=== PATIENT | male | born 1950 | race Hispanic/Latino ===

== ENCOUNTER → 2023-12-03 | Day surgery (SDC) | payer MEDICARE ==
[~2023-12-03] MED LIST: ACETAMINOPHEN 1000 MG/100 ML IV PRN; ASPIRIN 325 MG TAB PO SCH; ASPIRIN81 MG PO; CELEBREX100 MG PO; CELECOXIB 100 MG CAP PO SCH; CRESTOR40 MG PO; DEXAMETHASONE SOD PHOS INJ 4 MG/ML SDV ONE; DIPHENHYDRAMINE HCL INJ 50 MG/ML VIAL IV PRN; DOCUSATE SODIUM 100 MG CAP PO PRN; EPHEDRINE SULFATE INJ 50 MG/ML VIAL ONE; FENTANYL CITRATE/PF 100MCG/2 ML INJ ONE; GLUCOTROL XL10 MG PO; HYDROCODONE/APAP 5MG-325MG TAB PO PRN; HYDROCODONE/APAP 7.5MG-325MG 1 EA TAB PO PRN; LABETALOL HCL 5 MG/ML 20ML VIAL ONE; LASIX20 MG PO; LIDOCAINE HCL 2% LOCAL INJ 5 ML SDV VIAL INJ ONE; LOSARTAN POTASS25 MG PO; METFORMIN HCL500 M2 PO; METOPROLOL SUCC25 MG PO; MIDAZOLAM HCL 2 MG/2 ML VIAL ONE; ONDANSETRON HCL INJ 2MG/ML 2ML 2 MG/ML VIAL IV PRN; PLAVIX75 MG PO; PROPOFOL IV EMULSION 10 MG/ML 20 ML VIAL ONE; ROPIVACAINE 246.25 MG, EPINEPHRINE HCL 1:1000 1ML 0.5 MG, CLONIDINE HCL 0.08 MG, KETORO... INJ ONE; SEVOFLURANE INHAL SOLN 250 ML PEN BTL ONE; SODIUM CHLORIDE 0.9% 1000ML 1,000 ML IV SCH; SODIUM CHLORIDE 0.9% 500ML 500 ML ONE; SPIRONOLACTONE25 MG PO; TRANEXAMIC ACID 20 ML ONE; TRULICITY3 MG/0.5 M SC; Vancomycin IV 500 MG ONE; Z ULORIC PO; Z.0.ASPIR 8181 MG PO; Z.0.BENICAR40 MG PO; Z.0.CARVEDILOL12.5 M PO; Z.0.FUROSEMIDE40 MG PO; Z.0.GLIPIZIDE5 MG PO; Z.0.NITROGLYCERIN0.4 SL; Z.0.SPIRONOLACTONE25 PO
[2023-12-03] MEDS: DEXAMETHASONE SOD PHOS 10 MG/1 ML VIAL ONE (08:05)
[2023-12-03] MEDS: CELECOXIB 200 MG CAP ONE (08:05)
[2023-12-03] MEDS: GABAPENTIN 300 MG CAP ONE (08:06)
[2023-12-03] MEDS: LACTATED RINGER'S 1,000 ML ONE (08:06)
[2023-12-03] MEDS: CEFAZOLIN SODIUM 2 GM ONE (08:06)
[2023-12-03 12:21] VITALS: TEMP 97
[2023-12-03 17:00] VITALS: BP 147/70; PULSE 78; RESP 18; O2SAT 98
== END | disposition home health service (06) ==
LOC: OR 07:18
PROVIDERS: ATTEND Specialist
DX: M17.12 Unilateral primary osteoarthritis, left knee (principal); M11.262 Other chondrocalcinosis, left knee; I10 Essential (primary) hypertension; E78.5 Hyperlipidemia, unspecified; I25.10 Atherosclerotic heart disease of native coronary artery without angina pectoris; I25.2 Old myocardial infarction; Z95.0 Presence of cardiac pacemaker; E11.9 Type 2 diabetes mellitus without complications; Z01.810 Encounter for preprocedural cardiovascular examination; Z01.812 Encounter for preprocedural laboratory examination; Z01.818 Encounter for other preprocedural examination; Z79.02 Long term (current) use of antithrombotics/antiplatelets; Z79.82 Long term (current) use of aspirin; Z79.84 Long term (current) use of oral hypoglycemic drugs; Z79.85 Long-term (current) use of injectable non-insulin antidiabetic drugs; Z79.899 Other long term (current) drug therapy; Z86.73 Personal history of transient ischemic attack (TIA), and cerebral infarction without residual deficits
CPT/HCPCS: 27447; 71046; 73560; 86850; 86900; 93005; 97110; 97116 ×2; 97161; 97530; C1713 ×2; C1776 ×3; J0171; J1100 ×2; J1885; J2003; J2250; J2704; J2795; J3010; J3370; J3490; J7040; J7121

== ENCOUNTER 2024-11-03 11:56 | Inpatient (IN) | payer MEDICARE ==
[~2024-11-03] VITALS: Ht 198.1 cm; Wt 68.0 kg
[2024-11-03] VITALS (24 sets, daily range): BP systolic 71–135; BP diastolic 55–99; PULSE 59–148; RESP 14–35; TEMP 96–97.9; O2SAT 96–100
[~2024-11-03 11:56] MED LIST changes: -ACETAMINOPHEN 1000 MG/100 ML IV PRN; -ASPIRIN 325 MG TAB PO SCH; -CELECOXIB 100 MG CAP PO SCH; -DEXAMETHASONE SOD PHOS INJ 4 MG/ML SDV ONE; -DIPHENHYDRAMINE HCL INJ 50 MG/ML VIAL IV PRN; -DOCUSATE SODIUM 100 MG CAP PO PRN; -EPHEDRINE SULFATE INJ 50 MG/ML VIAL ONE; -FENTANYL CITRATE/PF 100MCG/2 ML INJ ONE; -HYDROCODONE/APAP 5MG-325MG TAB PO PRN; -HYDROCODONE/APAP 7.5MG-325MG 1 EA TAB PO PRN; -LABETALOL HCL 5 MG/ML 20ML VIAL ONE; -LIDOCAINE HCL 2% LOCAL INJ 5 ML SDV VIAL INJ ONE; -MIDAZOLAM HCL 2 MG/2 ML VIAL ONE; -ONDANSETRON HCL INJ 2MG/ML 2ML 2 MG/ML VIAL IV PRN; -PROPOFOL IV EMULSION 10 MG/ML 20 ML VIAL ONE; -ROPIVACAINE 246.25 MG, EPINEPHRINE HCL 1:1000 1ML 0.5 MG, CLONIDINE HCL 0.08 MG, KETORO... INJ ONE; -SEVOFLURANE INHAL SOLN 250 ML PEN BTL ONE; -SODIUM CHLORIDE 0.9% 1000ML 1,000 ML IV SCH; -SODIUM CHLORIDE 0.9% 500ML 500 ML ONE; -TRANEXAMIC ACID 20 ML ONE; -Vancomycin IV 500 MG ONE
[2024-11-03 13:14] LABS: BASOPHILS % 0.5 % (0.0-1.0); EOSINOPHILS % 1.5 % (0.0-6.0); LYMPHOCYTES % 29.3 % (18.0-39.1); MONOCYTES % 6.0 % (4.4-11.3); NEUTROPHILS % 62.5 % (38.7-80.0); RED CELL DISTRIBUTION WIDTH 15.5 % (11.7-14.4)
[2024-11-03] MEDS: METOPROLOL TARTRATE 50 MG TAB PO ONE (13:20)
[2024-11-03] MEDS: DILTIAZEM HCL 5 MG/ML 5 ML VIAL IV ONE (13:21)
[2024-11-03 13:25] LABS: EST GLOMERULAR FILTRATION RATE 32.0 ML/MIN (>=60)
[2024-11-03] MEDS ORDERED: SODIUM CHLORIDE 0.9% 1000ML 1,000 ML ONE (13:29)
[2024-11-03] MEDS: SODIUM CHLORIDE 0.9% 1000ML 1,000 ML IV ONE (13:52)
[2024-11-03] MEDS: ASPIRIN 81 MG CHEW TAB PO ONE (13:57)
[2024-11-03] MEDS ORDERED: CLOPIDOGREL BISULFATE 75 MG TAB ONE (13:58)
[2024-11-03] MEDS ORDERED: DEXTROSE 50% SYRINGE 50 ML IV PRN ×2 (14:15→16:45)
[2024-11-03] MEDS: AMIODARONE 900MG 500 ML IV SCH (14:20)
[2024-11-03] MEDS: CLOPIDOGREL BISULFATE 75 MG TAB PO ONE (15:11)
[2024-11-03] MEDS: VASOPRESSIN 60 UNIT in DEXTROSE 5% 50ML 57 ML IV SCH (15:34)
[2024-11-03] MEDS: DIGOXIN INJ 0.25 MG/ML 2 ML AMP IV ONE (16:22)
[2024-11-03] MEDS: INSULIN REGULAR, HUMAN 100 UNIT/1 ML SQ SCH (16:30)
[2024-11-03] MEDS ORDERED: ONDANSETRON HCL INJ 2MG/ML 2ML 2 MG/ML VIAL IV PRN (16:45)
[2024-11-03] MEDS ORDERED: POTASSIUM CHLORIDE 20 MEQ TAB CR PO PRN (16:45)
[2024-11-03] MEDS ORDERED: HYDRALAZINE HCL 20 MG/ML VIAL IV PRN (16:45)
[2024-11-03] MEDS ORDERED: ALBUTEROL/IPRATROPIUM 3 ML NEB NEB PRN (16:45)
[2024-11-03] MEDS ORDERED: DOCUSATE SODIUM 100 MG CAP PO PRN (16:45)
[2024-11-03] MEDS ORDERED: BENZONATATE 100 MG CAP PO PRN (16:45)
[2024-11-03] MEDS ORDERED: DIPHENHYDRAMINE HCL 25 MG CAP PO PRN (16:45)
[2024-11-03] MEDS ORDERED: SIMETHICONE 80 MG CHEW PO PRN (16:45)
[2024-11-03] MEDS ORDERED: APIXABAN 5 MG TABLET PO SCH (17:00)
[2024-11-03] MEDS ORDERED: HEPARIN SOD (PORCINE) 1000 UNIT/ML SDV IV SCH (17:30)
[2024-11-03] MEDS: HEPARIN 25,000 UNIT/D5W 250ML 250 ML IV SCH (17:30)
[2024-11-03] MEDS: FUROSEMIDE INJ 10 MG/ML 4 ML VIAL IV ONE (18:26)
[2024-11-03] MEDS: HEPARIN SOD (PORCINE) 1000 UNIT/ML SDV IV ONE (18:33)
[2024-11-03] MEDS: FUROSEMIDE INJ 100 MG in SODIUM CHLORIDE 0.9% 90 ML IV SCH (18:35)
[2024-11-03] MEDS: ATORVASTATIN 40 MG TAB PO SCH (20:40)
[2024-11-03] MEDS ORDERED: MELATONIN 5 MG TABLET PO PRN (21:00)
[2024-11-04] VITALS (53 sets, daily range): BP systolic 89–169; BP diastolic 52–126; PULSE 63–108; RESP 15–30; TEMP 97.6–98; O2SAT 97–100
[2024-11-04 05:32] LABS: BASOPHILS % 0.5 % (0.0-1.0); EOSINOPHILS % 0.1 % (0.0-6.0); LYMPHOCYTES % 23.4 % (18.0-39.1); MONOCYTES % 9.0 % (4.4-11.3); NEUTROPHILS % 66.5 % (38.7-80.0); RED CELL DISTRIBUTION WIDTH 15.1 % (11.7-14.4)
[2024-11-04 06:08] LABS: EST GLOMERULAR FILTRATION RATE 32.0 ML/MIN (>=60)
[2024-11-04 06:26] LABS: CHOL/HDL RATIO 2.6 (3.9-4.7); LDL CHOLESTEROL 31.0 MG/DL (60-130); PHOSPHORUS 5.4 MG/DL (2.3-4.7)
[2024-11-04] MEDS: ASPIRIN 81 MG ENTERIC COATED PO SCH (08:03)
[2024-11-04] MEDS: PANTOPRAZOLE SOD 40 MG TABEC PO SCH (08:03)
[2024-11-04] MEDS: MAGNESIUM SULFATE 2GM/50ML 50 ML IV ONE (12:07)
[2024-11-04] MEDS ORDERED: AMIODARONE 900MG 900 MG in Premix Bag 1 BAG IV SCH (13:00)
[2024-11-04] MEDS ORDERED: AMIODARONE 900MG 500 ML IV SCH (13:15)
[2024-11-04] MEDS: AMIODARONE 900MG 500 ML IV SCH (13:30)
[2024-11-04] MEDS: METOPROLOL TARTRATE 25 MG TAB PO SCH (17:57)
[2024-11-05] VITALS (41 sets, daily range): BP systolic 92–130; BP diastolic 53–111; PULSE 63–84; RESP 11–33; TEMP 97.7–98.2; O2SAT 93–100
[2024-11-05] MEDS: ACETAMINOPHEN 325 MG TAB PO PRN (04:04)
[2024-11-05 04:58] LABS: LEUKOCYTE ESTERASE ,URINE NEGATIVE (NEGATIVE); PROTEIN,URINE DIPSTICK NEGATIVE (NEGATIVE); URINE UROBILINOGEN 0.2 mg/dL (0.2 - 1)
[2024-11-05 05:09] LABS: EPITHELIAL CELLS,URINE FEW /LPF; WBC,URINE (MAN) 0-5 /HPF (0-5)
[2024-11-05 07:21] LABS: BASOPHILS % 0.2 % (0.0-1.0); EOSINOPHILS % 0.1 % (0.0-6.0); LYMPHOCYTES % 15.0 % (18.0-39.1); MONOCYTES % 7.3 % (4.4-11.3); NEUTROPHILS % 77.2 % (38.7-80.0); RED CELL DISTRIBUTION WIDTH 15.1 % (11.7-14.4)
[2024-11-05 07:46] LABS: EST GLOMERULAR FILTRATION RATE 38.0 ML/MIN (>=60)
[2024-11-05] MEDS: AMIODARONE HCL 200 MG TAB PO SCH (09:22)
[2024-11-05] MEDS: FUROSEMIDE INJ 10 MG/ML 10 ML VIAL IV SCH ×2 (09:23→17:12)
[2024-11-05] MEDS ORDERED: KETOROLAC TROMETHAMINE 30 MG/ML VIAL IV ONE (23:15)
[2024-11-05] MEDS: KETOROLAC TROMETHAMINE 30 MG/ML VIAL IV ONE (23:28)
[2024-11-06] VITALS (26 sets, daily range): BP systolic 94–118; BP diastolic 55–96; PULSE 68–80; RESP 12–21; TEMP 97.9–98.2; O2SAT 95–100
[2024-11-06 06:00] LABS: BASOPHILS % 0.4 % (0.0-1.0); EOSINOPHILS % 0.6 % (0.0-6.0); LYMPHOCYTES % 21.9 % (18.0-39.1); MONOCYTES % 9.8 % (4.4-11.3); NEUTROPHILS % 66.8 % (38.7-80.0); RED CELL DISTRIBUTION WIDTH 14.9 % (11.7-14.4)
[2024-11-06 06:22] LABS: EST GLOMERULAR FILTRATION RATE 33.0 ML/MIN (>=60)
[2024-11-06] MEDS: HYDROCODONE/APAP 5MG-325MG TAB PO PRN (15:42)
[2024-11-07] VITALS (26 sets, daily range): BP systolic 85–139; BP diastolic 57–84; PULSE 34–81; RESP 10–25; TEMP 97.6–98.2; O2SAT 95–100
[2024-11-07 05:28] LABS: BASOPHILS % 0.2 % (0.0-1.0); EOSINOPHILS % 1.3 % (0.0-6.0); LYMPHOCYTES % 23.9 % (18.0-39.1); MONOCYTES % 9.4 % (4.4-11.3); NEUTROPHILS % 65.0 % (38.7-80.0); RED CELL DISTRIBUTION WIDTH 15.3 % (11.7-14.4)
[2024-11-07 05:49] LABS: EST GLOMERULAR FILTRATION RATE 36.0 ML/MIN (>=60)
[2024-11-07] MEDS ORDERED: FUROSEMIDE INJ 10 MG/ML 10 ML VIAL IV SCH (09:00)
[2024-11-08] VITALS (32 sets, daily range): BP systolic 98–128; BP diastolic 56–83; PULSE 70–77; RESP 10–25; TEMP 96.8–99.1; O2SAT 96–100
[2024-11-08 06:40] LABS: BASOPHILS % 0.4 % (0.0-1.0); EOSINOPHILS % 1.6 % (0.0-6.0); LYMPHOCYTES % 23.6 % (18.0-39.1); MONOCYTES % 10.5 % (4.4-11.3); NEUTROPHILS % 63.6 % (38.7-80.0); RED CELL DISTRIBUTION WIDTH 14.9 % (11.7-14.4)
[2024-11-08 07:04] LABS: EST GLOMERULAR FILTRATION RATE 35.0 ML/MIN (>=60)
[2024-11-08] MEDS ORDERED: ETOMIDATE 2 MG/ML 10 ML INJ IV ONE (12:44)
[2024-11-08] MEDS ORDERED: MIDAZOLAM HCL 2 MG/2 ML VIAL ONE (12:44)
[2024-11-08] MEDS: ACETYLCYSTEINE 200 MG/1 ML 10 ML VIAL PO SCH (18:42)
[2024-11-08] MEDS: SODIUM CHLORIDE 0.9% 1000ML 1,000 ML IV SCH (23:50)
[2024-11-09] VITALS (24 sets, daily range): BP systolic 102–146; BP diastolic 49–99; PULSE 41–77; RESP 11–23; TEMP 97.9–98.2; O2SAT 96–100
[2024-11-09 04:56] LABS: BASOPHILS % 0.5 % (0.0-1.0); EOSINOPHILS % 1.7 % (0.0-6.0); LYMPHOCYTES % 24.6 % (18.0-39.1); MONOCYTES % 9.7 % (4.4-11.3); NEUTROPHILS % 63.2 % (38.7-80.0); RED CELL DISTRIBUTION WIDTH 15.0 % (11.7-14.4)
[2024-11-09 05:15] LABS: EST GLOMERULAR FILTRATION RATE 47.0 ML/MIN (>=60)
[2024-11-09] MEDS ORDERED: VERAPAMIL HCL 2.5 MG/ML 2 ML VIAL ONE (08:39)
[2024-11-09] MEDS ORDERED: NITROGLYCERIN/D5W 200 MCG/ML 250 ML ONE (08:40)
[2024-11-09] MEDS ORDERED: MIDAZOLAM HCL 2 MG/2 ML VIAL ONE (09:19)
[2024-11-09] MEDS ORDERED: FENTANYL CITRATE/PF 100MCG/2 ML INJ ONE (09:20)
[2024-11-09] MEDS: HEPARIN SOD (PORCINE) 1000 UNIT/ML 30ML ONE (10:45)
[2024-11-09] MEDS: SODIUM CHLORIDE 0.9% 1000ML 1,000 ML ONE (10:45)
[2024-11-09] MEDS: HEPARIN SOD/SOD CHLORIDE 2,000 ML ONE (10:46)
[2024-11-09] MEDS: IOPAMIDOL 370 MG/ML 100 ML INFUS..BTL INJ ONE (10:49)
[2024-11-09] MEDS: LIDOCAINE HCL 2% LOCAL 20 ML VIAL ONE (10:49)
[2024-11-21] MEDS ORDERED: ETOMIDATE 2 MG/ML 10 ML INJ IV ONE (12:46)
[2024-11-21] MEDS ORDERED: SUCCINYLCHOLINE CHLORIDE 20 MG/ML 10ML VIAL ONE (12:46)
== END 2024-11-09 19:45 | disposition home or self-care (01) | DRG 280 ==
LOC: ER 12:10 → ERHOLD 15:42 → ICU 17:12
PROVIDERS: ADMIT Internal Medicine; ATTEND Internal Medicine
PROC: 5A2204Z Restoration of Cardiac Rhythm, Single (ICD-10-PCS; principal; 2024-11-03)
PROC: 05HY33Z Insertion of Infusion Device into Upper Vein, Percutaneous Approach (ICD-10-PCS; 2024-11-03)
PROC: 3E033XZ Introduction of Vasopressor into Peripheral Vein, Percutaneous Approach (ICD-10-PCS; 2024-11-03)
PROC: 4A023N7 Measurement of Cardiac Sampling and Pressure, Left Heart, Percutaneous Approach (ICD-10-PCS; 2024-11-09)
PROC: B3101ZZ Fluoroscopy of Thoracic Aorta using Low Osmolar Contrast (ICD-10-PCS; 2024-11-09)
PROC: B2181ZZ Fluoroscopy of Left Internal Mammary Bypass Graft using Low Osmolar Contrast (ICD-10-PCS; 2024-11-09)
PROC: B2111ZZ Fluoroscopy of Multiple Coronary Arteries using Low Osmolar Contrast (ICD-10-PCS; 2024-11-09)
PROC: B2121ZZ Fluoroscopy of Single Coronary Artery Bypass Graft using Low Osmolar Contrast (ICD-10-PCS; 2024-11-09)
DX: I47.20 Ventricular tachycardia, unspecified (principal); I50.23 Acute on chronic systolic (congestive) heart failure; I21.A1 Myocardial infarction type 2; I13.0 Hypertensive heart and chronic kidney disease with heart failure and stage 1 through stage 4 chronic kidney disease, or unspecified chronic kidney disease; N17.9 Acute kidney failure, unspecified; I48.92 Unspecified atrial flutter; E78.00 Pure hypercholesterolemia, unspecified; E11.9 Type 2 diabetes mellitus without complications; I25.5 Ischemic cardiomyopathy; I25.10 Atherosclerotic heart disease of native coronary artery without angina pectoris; I95.9 Hypotension, unspecified; R60.1 Generalized edema; I48.0 Paroxysmal atrial fibrillation; D63.8 Anemia in other chronic diseases classified elsewhere; E11.22 Type 2 diabetes mellitus with diabetic chronic kidney disease; M17.9 Osteoarthritis of knee, unspecified; N18.30 Chronic kidney disease, stage 3 unspecified; Z95.0 Presence of cardiac pacemaker; Z79.82 Long term (current) use of aspirin; Z79.02 Long term (current) use of antithrombotics/antiplatelets; Z79.84 Long term (current) use of oral hypoglycemic drugs; Z95.1 Presence of aortocoronary bypass graft
CPT/HCPCS: 36415; 36569; 71045; 75605; 76770; 76937; 80048; 80053; 80061; 81001; 82550; 82948; 83036; 83735; 83880; 84100; 84443; 84484; 85025; 85730; 93005; 93459; 94799; 96372; 99152; 99153; 99252; 99284; C1760; C1769; J1160; J1644; J1885; J1938; J1940; J2003; J2250; J2470; J3475; J7030; J7050; Q9967